=== PATIENT | female | born 1945 | race Hispanic/Latino ===

== ENCOUNTER 2018-08-21 16:01 | Outpatient (CLI) | payer MEDICARE | END 2018-08-21 16:02 | disposition home or self-care (01) | LOC: C.RADIC 16:01 | DX: J44.9 Chronic obstructive pulmonary disease, unspecified (principal) ==

== ENCOUNTER 2018-08-22 14:57 | Outpatient (CLI) | payer MEDICARE | END 2018-08-22 14:58 | disposition home or self-care (01) | LOC: C.CARD 14:57 ==